=== PATIENT | female | born 1970 | race Caucasian/White ===

== ENCOUNTER → 2017-01-29 | Outpatient (REF) | payer OTHER | LOC: M LAB REF 16:13 | PROVIDERS: ATTEND Physician Assistant | DX: R30.0 Dysuria (principal) ==

== ENCOUNTER → 2017-06-21 | Outpatient (REF) | payer OTHER ==
[2017-06-21 16:08] LABS: BASO # 0.1 10^3/uL (0.0-0.2); BASO % 0.8 % (0.0-1.0); EOS # 0.1 10^3/uL (0.0-0.50); EOS % 0.8 % (0.0-3.0); HEMATOCRIT 46.6 % (36.0-47.0); HEMOGLOBIN 15.3 g/dl (12.0-16.0); IMMATURE GRANULOCYTE % 0.3 % (0-0); LYMPH % 25.4 % (24.0-44.0); MEAN CORPUSCULAR HEMOGLOBIN 29.8 pg (27.0-33.0); MEAN CORPUSCULAR HGB CONC 32.8 g/dl (32.0-36.5); MEAN CORPUSCULAR VOLUME 90.7 fl (80.0-96.0); MONO # 0.5 10^3/uL (0.0-0.8); MONO % 4.6 % (0.0-5.0); NEUTROPHILS # 7.9 10^3/uL (1.8-7.7); NEUTROPHILS % 68.1 % (36.0-66.0); PLATELET COUNT, AUTOMATED 366 10^3/uL (150-450); RED BLOOD COUNT 5.14 10^6/uL (4.00-5.40); RED CELL DISTRIBUTION WIDTH 12.7 % (11.5-14.5); WHITE BLOOD COUNT 11.6 10^3/uL (4.0-10.0)
[2017-06-21 16:36] LABS: ALT/SGPT 31 U/L (12-78); CHOLESTEROL LEVEL 227 MG/DL (<200); CHOLESTEROL RISK RATIO 5.973 (<5); HDL CHOLESTEROL 38 MG/DL (>40); IMMUNOGLOBULIN G 968 MG/DL (681-1648); IMMUNOGLOBULIN M 120 MG/DL (40-230); LDL CHOLESTEROL 139.6 MG/DL (<100); NON-HDL-C 189 MG/DL; TOTAL PROTEIN 7.9 GM/DL (6.4-8.2); TRIGLYCERIDES LEVEL 247 MG/DL (<150)
[2017-06-22 11:16] LABS: ALBUMIN 4.65 GM/DL (3.29-5.55); ALBUMIN % 58.8 % (55.8-66.1); ALPHA-1-GLOBULIN % 4.9 % (2.9-4.9); ALPHA-1-GLOBULINS 0.39 GM/DL (0.17-0.41); ALPHA-2-GLOBULINS 0.87 GM/DL (0.42-0.99); BETA-1-GLOBULINS 0.54 GM/DL (0.28-0.60); BETA-1-GLOBULINS % 6.8 % (4.7-7.2); BETA-2-GLOBULINS 0.43 GM/DL (0.19-0.55); BETA-2-GLOBULINS % 5.5 % (3.2-6.5); GAMMA GLOBULINS 1.03 GM/DL (0.65-1.58)
[2017-06-24 00:07] LABS: FREE KAPPA LIGHT CHAINS SERUM 22.5 mg/L (3.3-19.4); FREE LAMBDA LIGHT CHAINS SERUM 13.8 mg/L (5.7-26.3); KAPPA/LAMBDA RATIO SERUM 1.63 (0.26-1.65)
== END ==
LOC: M LABDRAW1 15:45
DX: E78.5 Hyperlipidemia, unspecified (principal); E78.1 Pure hyperglyceridemia; D72.829 Elevated white blood cell count, unspecified; Z79.899 Other long term (current) drug therapy

== ENCOUNTER → 2017-12-08 | Outpatient (CLI) | payer OTHER | LOC: M RAD 15:23 | DX: M46.1 Sacroiliitis, not elsewhere classified (principal); M51.26 Other intervertebral disc displacement, lumbar region; M51.27 Other intervertebral disc displacement, lumbosacral region; M79.1 Myalgia; M54.16 Radiculopathy, lumbar region; M47.817 Spondylosis without myelopathy or radiculopathy, lumbosacral region; M47.816 Spondylosis without myelopathy or radiculopathy, lumbar region | CPT/HCPCS: 72131 ==

== ENCOUNTER 2018-01-12 11:45 | Emergency (ER) | payer BC, OTHER ==
[2018-01-12] MEDS: diphenhydrAMINE INJ 50MG/ML VIAL (J1200) IV (14:08)
[2018-01-12] MEDS: METOCLOPRAMIDE INJ 10MG/2ML VIAL (J2765) IV (14:24)
[2018-01-12] MEDS: NS 1,000 ML IV (14:24)
[2018-01-12] MEDS: KETOROLAC 30 MG/ML VIAL (J1885) IV (14:24)
[2018-01-12 14:43] LABS: BASO # 0.1 10^3/uL (0.0-0.2); BASO % 0.7 % (0.0-1.0); EOS # 0.2 10^3/uL (0.0-0.50); HEMATOCRIT 49.9 % (36.0-47.0); HEMOGLOBIN 16.7 g/dl (12.0-15.5); IMMATURE GRANULOCYTE % 0.4 % (0-3.0); LYMPH % 29.1 % (24.0-44.0); MEAN CORPUSCULAR HEMOGLOBIN 30.6 pg (27.0-33.0); MEAN CORPUSCULAR HGB CONC 33.5 g/dl (32.0-36.5); MEAN CORPUSCULAR VOLUME 91.6 fl (80.0-96.0); MONO # 0.5 10^3/uL (0.0-0.8); MONO % 4.7 % (0.0-5.0); NEUTROPHILS # 6.5 10^3/uL (1.8-7.7); NEUTROPHILS % 63.1 % (36.0-66.0); PLATELET COUNT, AUTOMATED 355 10^3/uL (150-450); RED BLOOD COUNT 5.45 10^6/uL (4.00-5.40); RED CELL DISTRIBUTION WIDTH 13.5 % (11.5-14.5); WHITE BLOOD COUNT 10.3 10^3/uL (4.0-10.0)
[2018-01-12 15:07] LABS: ERYTHROCYTE SEDIMENTATION RATE 3 mm/hr (0-20)
[2018-01-12 15:14] LABS: ANION GAP 8 MEQ/L (8-16); BLOOD UREA NITROGEN 12 MG/DL (7-18); CALCIUM LEVEL 9.9 MG/DL (8.5-10.1); CARBON DIOXIDE LEVEL 29 MEQ/L (21-32); CHLORIDE LEVEL 103 MEQ/L (98-107); CK-MB VALUE MASS 2.6 NG/ML (<3.6); CPK CREATINE PHOSPHOKINASE 96 U/L (26-192); CREATININE FOR GFR 0.83 MG/DL (0.55-1.30); GLOMERULAR FILTRATION RATE > 60.0 (>58); GLUCOSE, FASTING 94 MG/DL (70-100); POTASSIUM SERUM 4.1 MEQ/L (3.5-5.1); SODIUM LEVEL 140 MEQ/L (136-145); TROPONIN I < 0.02 NG/ML (< 0.10)
[2018-01-15 00:07] LABS: Lyme Disease IgG/IgM Antibodie <0.91 ISR (0.00-0.90); Lyme Disease IgM Ab Quantitati <0.80 index (0.00-0.79)
== END 2018-01-12 15:36 | disposition home or self-care (01) ==
LOC: M ED 11:45
DX: R51 Headache (principal); R71.8 Other abnormality of red blood cells; K21.9 Gastro-esophageal reflux disease without esophagitis; I10 Essential (primary) hypertension; E78.5 Hyperlipidemia, unspecified; E87.6 Hypokalemia; M54.9 Dorsalgia, unspecified; F17.210 Nicotine dependence, cigarettes, uncomplicated
CPT/HCPCS: J1200

== ENCOUNTER → 2019-01-05 | Outpatient (REF) | payer OTHER ==
[~2019-01-05] MED LIST: ALEV220C2 PO; ATOR1TAB21; DEXT15CA5; DILT240C47; DULO1CAP6; IBUP-1022 PO; MAXZTA PO; RANI150T
== END ==
LOC: M LAB REF 13:00
PROVIDERS: ATTEND Physician Assistant
DX: J02.9 Acute pharyngitis, unspecified (principal)

== ENCOUNTER → 2019-01-30 | Outpatient (REF) | payer OTHER ==
[2019-01-30 20:09] LABS: APPEARANCE, URINE CLEAR (CLEAR); BACTERIA, URINE AUTO 1+ (NEGATIVE); BILIRUBIN, URINE AUTO NEGATIVE (NEGATIVE); BLOOD, URINE BLOOD NEGATIVE (NEGATIVE); COLOR, URINE AMBER (YELLOW); GLUCOSE, URINE (UA) AUTO NEGATIVE (NEGATIVE); KETONE, URINE AUTO NEGATIVE (NEGATIVE); LEUKOCYTE ESTERASE, URINE AUTO NEGATIVE (NEGATIVE); MUCUS, URINE SMALL (NEGATIVE); NITRITE, URINE AUTO POSITIVE (NEGATIVE); PROTEIN, URINE AUTO NEGATIVE (NEGATIVE); RBC, URINE AUTO 2 /HPF (0-3); SPECIFIC GRAVITY URINE AUTO 1.009 (1.002-1.035); SQUAMOUS EPITHELIAL CELL UR AU 1 /HPF (0-6); UROBILINOGEN, URINE AUTO 0.2 mg/dL (0.0-2.0); WBC, URINE AUTO 0 /HPF (0-3)
== END ==
LOC: M LAB REF 19:24
PROVIDERS: ATTEND Physician Assistant Medical
DX: N39.0 Urinary tract infection, site not specified (principal)

== ENCOUNTER 2019-07-21 13:08 | Day surgery (SDC) | payer BC, OTHER ==
[~2019-07-21] VITALS: Ht 154.9 cm; Wt 79.8 kg
[~2019-07-21 13:08] MED LIST changes: +ALEV220T22 PO; +ATOR80TA59 PO; +CARI1TAB7 PO; +DEXE15CA PO; +DILT1TAB3 PO; +DULO1CAP6 PO; +FAMC500T PO; +FLON1SPR; +IBUP200C25 PO; +LR 1,000 ML IV ONE; +OMEP1CAP73 PO; +PROV108A INH; +TIZA4CAP PO; +TRAZ-252 PO; +excedrin PO; +lidex TOP
[2019-07-21] MEDS ORDERED: ACET-683 PO (13:54)
--- NOTE | 2019-07-21 15:19 | ECGEPIP ---
[facility] Test Date: 2019-07-21 Pat Name: YAZAN RICHARDS Department: Room: - Gender: Female It Integration Architect: RAS : [id number] Requested By: Brett Abarca Order Number: [id number] Reading MD: Roe Hein Measurements Intervals [place] Rate: 71 P: 30 MA: 156 QRS: 18 QRSD: 84 T: 67 QT: 392 QTc: 426 Interpretive Statements SINUS RHYTHM septal q waves previously noted in tracing done 01-12-18 NONSPECIFIC T-WAVE ABNORMALITY Electronically Signed on 07-21-2019 15:19:24 EST by Roe Hein
[2019-07-21] MEDS ORDERED: BUPIVACAINE/EPIN 0.25% 30 ML VIAL As Ordered ONE (16:12)
[2019-07-21] MEDS ORDERED: ONDANSETRON 4MG/2ML VIAL (J2405) As Ordered ONE (16:42)
[2019-07-21] MEDS ORDERED: ROCURONIUM BROMIDE 50 MG/5 ML VIAL As Ordered ONE ×2 (16:42→16:45)
[2019-07-21] MEDS ORDERED: fentaNYL 250 MCG/5 ML INJECTION (J3010) As Ordered ONE (16:42)
[2019-07-21] MEDS ORDERED: MIDAZOLAM INJ 2 MG/2 ML VIAL (J2250) As Ordered ONE (16:42)
[2019-07-21] MEDS ORDERED: propofoL 200 MG/20 ML VIAL As Ordered ONE ×2 (16:42→16:46)
[2019-07-21] MEDS ORDERED: SUGAMMADEX SODIUM 500 MG/5 ML VIAL (BRIDION) As Ordered ONE (16:42)
[2019-07-21] MEDS ORDERED: KETOROLAC 60 MG/2 ML VIAL (J1885) As Ordered ONE (16:42)
[2019-07-21] MEDS ORDERED: LIDOCAINE 2% INJ 100 MG/5 ML SDV (FOR ANES.) As Ordered ONE (16:42)
[2019-07-21] MEDS ORDERED: METOCLOPRAMIDE INJ 10MG/2ML VIAL (J2765) As Ordered ONE (16:42)
[2019-07-21] MEDS ORDERED: dexameTHASONE 4 MG/ML 1ML VIAL (J1100) As Ordered ONE (16:42)
[2019-07-21] MEDS ORDERED: ACETAMINOPHEN 1000MG 100ML IV BTL (OFIRMEV) (J0131 PER 10MG) As Ordered ONE (16:43)
[2019-07-21] MEDS ORDERED: fentaNYL 100 MCG/2 ML INJECTION (J3010) As Ordered ONE (17:02)
[2019-07-21] MEDS ORDERED: LABETALOL HCL 100 MG/20 ML VIAL As Ordered ONE (17:06)
[2019-07-21] MEDS ORDERED: KETOROLAC 30 MG/ML VIAL (J1885) IV PRN (17:15)
[2019-07-21] MEDS ORDERED: ALBUTEROL 6.7GM INHALER **FOR ANES. CART/OMNICELL ONLY As Ordered ONE (17:28)
[2019-07-21] MEDS ORDERED: LR 1,000 ML IV SCH (18:00)
[2019-07-21] MEDS ORDERED: oxyCODONE 5MG TAB PO PRN (18:00)
[2019-07-21] MEDS ORDERED: ONDANSETRON 4MG/2ML VIAL (J2405) IV PRN (18:00)
[2019-07-21] MEDS ORDERED: fentaNYL 100 MCG/2 ML INJECTION (J3010) IV PRN (18:00)
[2019-07-21] MEDS ORDERED: NORCO, ANEXSIA 5/325MG TABLET (HYDROcodone/ACETAMINOPHEN) PO PRN (18:00)
[2019-07-21 18:55] VITALS: BP 122/70
--- NOTE | 2019-07-24 23:50 | RO ---
DATE OF PROCEDURE: 07/21/2019 PREOPERATIVE DIAGNOSIS: Biliary dyskinesia. POSTOPERATIVE DIAGNOSIS: Biliary dyskinesia. PROCEDURE: Robotic cholecystectomy. SURGEON: Dr. Dedrick Melvin LAWN MAINTENANCE WORKER: None. ANESTHESIA: General. ESTIMATED BLOOD LOSS: 5 mL. COMPLICATIONS: None. INDICATIONS FOR PROCEDURE: The patient is a 49-year-old female who presents with right upper quadrant pain and an abnormal HIDA scan, found to have biliary dyskinesia. Recommendation was to proceed with robotic cholecystectomy. Risks and benefits of the procedure not limited to but including bleeding, infection, hernia formation, damage to surrounding structures and need for further surgery were discussed in detail with the patient. Informed consent was obtained and procedure was planned. DESCRIPTION OF PROCEDURE: The patient was brought to operating room seven, after sufficient sedation, the abdomen was sterilely prepped and draped. Next, a time-out was done to confirm proper patient, proper procedure. Following that, an 8 mm incision was made in the left upper quadrant, Veress needle inserted, and the abdomen was insufflated to 15 mmHg. Veress needle was then removed and an 8 mm robotic Optiview port was used to gain access to the abdomen. Once the abdomen was entered, three more ports were placed. The robot was then docked to the ports. Fundus of gallbladder was elevated up towards the right shoulder. Cystic duct and cystic artery were dissected free using a combination of blunt and sharp dissection. Once they were both clearly identified, they were both doubly clipped and cut. Gallbladder was then dissected from the gallbladder fossa using electrocautery. Once it was completely freed up, it was brought out through a 5 mm Endo Catch bag from the right-sided port site. Once the gallbladder was removed, the abdomen was desufflated. Skin incisions were closed with #4-0 Vicryl subcuticular sutures. The abdomen was cleaned and dried, Steri-Strips, 4x4 and tape were applied thus ending procedure.
== END 2019-07-21 18:59 | disposition home or self-care (01) ==
LOC: M SDC 13:08
PROVIDERS: ATTEND Surgery
DX: K81.1 Chronic cholecystitis (principal); I10 Essential (primary) hypertension; E78.5 Hyperlipidemia, unspecified; K76.0 Fatty (change of) liver, not elsewhere classified; K21.9 Gastro-esophageal reflux disease without esophagitis; Z79.899 Other long term (current) drug therapy; F17.218 Nicotine dependence, cigarettes, with other nicotine-induced disorders
CPT/HCPCS: 47562; 88304; 93005; J0131; J1100; J1885; J2250; J2405; J2765; J3010